=== PATIENT | female | born 1960 | race Caucasian/White ===

== ENCOUNTER 2017-09-18 13:58 | Emergency (ER) | payer OTHER ==
[~2017-09-18] VITALS: Ht 157.5 cm; Wt 62.0 kg
[2017-09-18 14:02] VITALS: Ht 157.5 cm; Wt 62.0 kg
[2017-09-18] MEDS ORDERED: ACETAMINOPHEN 500 MG TAB PO STA (14:22)
[2017-09-18] MEDS ORDERED: IBUPROFEN 800 MG TAB PO ONE (14:30)
[2017-09-18 15:22] VITALS: PULSE 99; RESP 17; TEMP 100.2
[2017-09-18] MEDS ORDERED: BENZ100C70 PO (15:23)
[2017-09-18] MEDS ORDERED: AZIT250T94 PO (15:23)
[2017-09-18] MEDS ORDERED: ALBU8.5H3 INH (15:23)
--- NOTE | 2017-09-18 15:29 | ERD ---
ER Documentation Chief Complaint Chief Complaint pt bib self with c/o sore throat for a few days and fever HPI 56 no history of diabetes is complaining of "flu like symptoms" for 3 weeks and fever for 2 days. She has had a cough, congestion, rhinorrhea and sore throat for 3 weeks, and developed a fever over the last 2 days. She describes body aches, headache. She denies vomiting, diarrhea. She denies chest pain, shortness of breath or abdominal pain. ROS All systems reviewed and are negative except as per history of present illness. Medications Home Meds Active Scripts Albuterol Sulfate* (Proair HFA*) 8.5 Gm Hfa.aer.ad, 2 PUFF INH Q4, #1 INHALER Prov:ROBBY SAEED PA-C 09/18/17 Benzonatate* (Tessalon Perle*) 100 Mg Capsule, 100 MG PO Q8H Y for COUGH, #30 CAP Prov:ROBBY SAEED PA-C 09/18/17 Azithromycin* (Zithromax*) 250 Mg Tablet, 250 MG PO .ZPACK DIRECTED, #6 TAB TAKE 500 MG (2 TABS) THE FIRST DAY THEN 250 MG (1 TAB) DAYS 2-5 Prov:ROBBY SAEED PA-C 09/18/17 Allergies Allergies: Coded Allergies: No Known Allergy (Unverified , 08/28/14) PMhx/Soc Hx Miscellaneous Medical Probl: Yes (dm) Hx Alcohol Use: No Hx Substance Use: No Hx Tobacco Use: No Physical Exam Vitals Vital Signs Date Time Temp Pulse Resp B/P Pulse Ox O2 Delivery O2 Flow Rate FiO2 09/18/17 15:22 100.2 99 17 96 Room Air 09/18/17 14:02 102.3 113 18 142/65 97 Physical Exam General: Well-developed, well-nourished. The patient appears in no acute distress. HEENT: Head is normocephalic, atraumatic. No scleral icterus. Pupils are equal , round, and reactive. Oral mucous membranes are moist. No pharyngeal erythema. Neck: Supple. Nontender. Lungs: Clear to auscultation. Normal air movement. Heart: Tachycardic, regular rate and rhythm S1 and S2 are normal. No murmurs, gallops, or rubs. Abdomen: Soft, nontender, nondistended. Bowel sounds are normoactive. Extremities: No clubbing or cyanosis. Normal pulses. Moving extremities x 4. No weakness. Neurologic: Alert and oriented 3. No focal deficits. Skin: Normal turgor. No rash or lesions. Results 24 hrs Current Medications Medications (Trade) Dose Ordered Sig/Meenu Route PRN Reason Start Time Stop Time Status Last Admin Dose Admin Acetaminophen (Tylenol Tab) 1,000 mg ONCE STAT PO 09/18/17 14:22 09/18/17 14:23 DC 09/18/17 14:37 Ibuprofen (Motrin) 800 mg ONCE ONCE PO 09/18/17 14:30 09/18/17 14:31 DC 09/18/17 14:37 DIAGNOSTIC IMAGING REPORT Patient: SARAH NÚÑEZ : 1960 Age: 56 Sex: F MR #: [id number] DOS: 09/18/17 1428 Ordering MD: ROBBY SAEED PA-C Location: [facility] Room/Bed: PROCEDURE: XR Chest. CLINICAL INDICATION: Cough TECHNIQUE: Single frontal view of the chest was obtained COMPARISON: None FINDINGS: The heart and mediastinum are within normal limits. There are mild left lower lobe linear atelectatic changes. The lungs are otherwise clear. There is no pleural effusion or pneumothorax. RPTAT: AA IMPRESSION: Mild left lower lobe linear atelectatic changes. .Kwaku Sandoval MD, MD Date Time Electronically viewed and signed by .Kwaku Sandoval MD, MD on 09/18/2017 15: 41 .S/ CC: ROBBY SAEED PA-C Procedures/MDM The patient is a 56-year-old female who comes in with acute bronchitis. Patient does have a fever and tachycardia, no pneumonia. No signs of sepsis, meningitis, deep space infection, acute appendicitis, UTI, pyelonephritis. The patient has a differential diagnosis of a viral upper respiratory infection, bacterial upper respiratory infection, bronchitis, pneumonia, pharyngitis, laryngitis, epiglottitis, croup, pneumonia. Patient has a normal pulmonary examination, clear breath sounds, normal pulse oximetry, with no corrective measures needed at this time. Fluids, rest, antipyretics were encouraged. Departure Diagnosis: Primary Impression: Cough Condition: Good Patient Instructions: Bronchitis, Antiobiotic Treatment (Adult) ROBBY SAEED PA-C Sep 18, 2017 15:28
--- NOTE | 2017-09-18 15:42 | RADRPT ---
PROCEDURE: XR Chest. CLINICAL INDICATION: Cough TECHNIQUE: Single frontal view of the chest was obtained COMPARISON: None FINDINGS: The heart and mediastinum are within normal limits. There are mild left lower lobe linear atelectatic changes. The lungs are otherwise clear. There is no pleural effusion or pneumothorax. RPTAT: AA IMPRESSION: Mild left lower lobe linear atelectatic changes. .Kwaku Sandoval MD, MD Date Time Electronically viewed and signed by .Kwaku Sandoval MD, on 09/18/2017 15:41 .S/
== END 2017-09-18 16:00 | disposition home or self-care (01) ==
LOC: FTE 13:58
DX: R05 Cough (principal); E11.9 Type 2 diabetes mellitus without complications
CPT/HCPCS: 71010; Z7502; Z7610

== ENCOUNTER 2017-12-18 07:45 | Emergency (ER) | END 2017-12-18 10:04 | disposition home or self-care (01) ==